=== PATIENT | male | born 1955 | race Two or more races ===

== ENCOUNTER 2018-09-22 10:26 | Emergency (ER) | payer OTHER ==
[2018-09-22 11:03] VITALS: BP 135/73; PULSE 78; TEMP 98; BMI 30.8
[2018-09-22] MEDS ORDERED: ONDANSETRON 4 MG/2 ML VIAL IVPUSH ONE (11:54)
[2018-09-22] MEDS ORDERED: SODIUM CHLORIDE 1,000 ML IV STA (11:54)
--- NOTE | 2018-09-22 12:00 | PDOC ---
History of Present Illness - General Chief Complaint: Nausea/Vomiting Stated Complaint: FEVER/VOMITING Time Seen by Provider: 09/22/18 11:17 History Source: Patient Exam Limitations: No Limitations Past History - Travel Traveled outside of the country in the last 30 days: No Close contact w/someone who was outside of country & ill: No - Past Medical History Allergies/Adverse Reactions: Allergies Allergy/AdvReac Type Severity Reaction Status Date / Time No Known Allergies Allergy Verified 09/22/18 10:58 Home Medications: Ambulatory Orders Albuterol Sulfate Inhaler - [Ventolin Hfa Inhaler -] 1 - 2 inh PO QID PRN Mag Hydrox/Al Hydrox/Simeth [Mylanta Oral Suspension -] 30 ml PO DAILY #210 ml 09/22/18 Omeprazole 40 mg PO DAILY 09/22/18 Ondansetron [Zofran Odt -] 4 mg SL TID #10 od.tablet 09/22/18 Ranitidine [Zantac -] 150 mg PO BID #14 tablet 09/22/18 Asthma: Yes COPD: No GI Disorders: Yes (reflux) - Suicide/Smoking/Psychosocial Hx Smoking History: Never smoked Review of Systems - Review of Systems Able to Perform ROS?: Yes Comments:: 09/22/18 11:54 CONSTITUTIONAL: Present: fever Absent: chills, diaphoresis, generalized weakness, malaise, loss of appetite HEENT: Absent: rhinorrhea, nasal congestion, throat pain, throat swelling, difficulty swallowing, mouth swelling, ear pain, eye pain, visual Changes CARDIOVASCULAR: Absent: chest pain, loss of consciousness, palpitations, irregular heart rate, peripheral edema RESPIRATORY: Absent: cough, shortness of breath, dyspnea with exertion, orthopnea, wheezing, stridor, hemoptysis GASTROINTESTINAL: Present: abdominal discomfort, nausea Absent: abdominal pain, abdominal distension, nausea, vomiting, diarrhea, constipation, melena, hematochezia GENITOURINARY: Absent: dysuria, frequency, urgency, hesitancy, hematuria, flank pain, genital pain MUSCULOSKELETAL: Absent: myalgia, arthralgia, joint swelling SKIN: Absent: rash, itching, pallor HEMATOLOGIC/IMMUNOLOGIC: Absent: easy bleeding, easy bruising, lymphadenopathy, frequent infections ENDOCRINE: Absent: unexplained weight gain, unexplained weight loss, heat intolerance, cold intolerance NEUROLOGIC: Absent: headache, focal weakness or paresthesias, dizziness, unsteady gait, seizure, mental status changes, bladder or bowel incontinence PSYCHIATRIC: Absent: anxiety, depression, suicidal or homicidal ideation, hallucinations. Is the patient limited Yoruba proficient: No *Physical Exam - Vital Signs Last Vital Signs Temp Pulse Resp BP Pulse Ox 98 F 78 22 H 135/73 100 09/22/18 11:02 09/22/18 11:02 09/22/18 11:02 09/22/18 11:02 09/22/18 11:02 - Physical Exam Comments: 09/22/18 12:00 GENERAL: Well developed, well nourished. Awake and alert. No acute distress. HEENT: Normocephalic, atraumatic. PERRLA, EOMI. No conjunctival pallor. Sclera are non- icteric. Moist mucous membranes. Oropharynx is clear. NECK: Supple. Full ROM. No JVD. Carotid pulses 2+ and symmetric, without bruits. No thyromegaly. No lymphadenopathy. CARDIOVASCULAR: Regular rate and rhythm. No murmurs, rubs, or gallops. Distal pulses are 2+ and symmetric. PULMONARY: No evidence of respiratory distress. Lungs clear to auscultation bilaterally. No wheezing, rales or rhonchi. ABDOMINAL: Discomfort to the epigastric area. Soft. Non-tender. Non-distended. No rebound or guarding. No organomegaly. Normoactive bowel sounds. MUSCULOSKELETAL Normal range of motion at all joints. No bony deformities or tenderness. No CVA tenderness. EXTREMITIES: No cyanosis. No clubbing. No edema. No calf tenderness. SKIN: Warm and dry. Normal capillary refill. No rashes. No jaundice. NEUROLOGICAL: Alert, awake, appropriate. Cranial nerves 2-12 intact. No deficits to light touch and temperature in face, upper extremities and lower extremities. No motor deficits in the in face, upper extremities and lower extremities. Normoreflexic in the upper and lower extremities. Normal speech. Toes are down- going bilaterally. Gait is normal without ataxia. PSYCHIATRIC: Cooperative. Good eye contact. Appropriate mood and affect. Moderate Sedation - Procedure Monitoring Vital Signs: Procedure Monitoring Vital Signs Temperature 98 F 09/22/18 11:02 Pulse Rate 78 09/22/18 11:02 Respiratory Rate 22 H 09/22/18 11:02 Blood Pressure 135/73 09/22/18 11:02 O2 Sat by Pulse Oximetry (%) 100 09/22/18 11:02 ED Treatment Course - LABORATORY CBC & Chemistry Diagram: 09/22/18 12:00 09/22/18 12:00 Medical Decision Making - Medical Decision Making 09/22/18 15:20 The patient is a 62-year-old male with no past medical history who presents to the emergency department today for evaluation of nausea, abdominal discomfort and intermittent fevers. He states that his girlfriend was recent diagnosed with the flu. He states that he feels weak. Denies sore throat, earache, difficulty breathing, chest pain, palpitations, vomiting and diarrhea. A/P: abdominal discomfort Labs, IV fluids, Flu EKG Meds No leukocytosis, lipase normal Flu negative No discomfort to the abdomen after zofran, fluids, pepcid and mylanta EKBPM, NRS, normal intervals/axis, no acute ST-T wave changes Most likely a viral illness DC home I discussed the physical exam findings, ancillary test results and final diagnoses with the patient. I answered all of the patient's questions. The patient was satisfied with the care received and felt comfortable with the discharge plan and treatment plan. The Patient agrees to follow up with the primary care physician/specialist within 24-72 hours. Return precautions were given. *DC/Admit/Observation/Transfer Diagnosis at time of Disposition: Gastroenteritis - Discharge Dispostion Disposition: HOME Condition at time of disposition: Stable Decision to Admit order: No - Prescriptions Prescriptions: Mag Hydrox/Al Hydrox/Simeth [Mylanta Oral Suspension -] 30 ml PO DAILY #210 ml Ondansetron [Zofran Odt -] 4 mg SL TID #10 od.tablet Ranitidine [Zantac -] 150 mg PO BID #14 tablet - Referrals Referrals: Juan Vasquez MD [Staff Physician] - - Patient Instructions Printed Discharge Instructions: DI for Viral Gastroenteritis -- Adult Additional Instructions: You have fever, nausea and vomiting Your blood work was normal today, your flu test was negative Take the zofran every 8 hours for nausea Take the zantac twice a day for one week Take the mylanta daily for one week. Avoid all dairy products until 48 hours after the vomiting/diarrhea has resolved. Eat a bland diet including apple sauce, toast, bananas, and plain rice Drink plenty of fluids including pedialyte, watered down juices and water Follow up with your primary care doctor this week Return to the ED if you develop fevers, abdominal pain, worsening vomiting, or if you have any changes in your symptoms. - Post Discharge Activity Forms/Work/School Notes: Back to Work
[2018-09-22] MEDS ORDERED: ONDANSETRON 4 MG/2 ML VIAL ONE (12:13)
[2018-09-22 12:21] LABS: BASO % 0.5 % (0-2.0); EOS % 0.1 % (0-4.5); HEMOGLOBIN 16.8 GM/dL (11.7-16.9); LYMPH % 9.2 % (8-40); MCH 30.4 pg (25.7-33.7); MCHC 34.9 g/dl (32.0-35.9); MEAN PLT VOLUME 6.8 fl (7.5-11.1); MONO % 14.1 % (3.8-10.2); NEUT % 76.1 % (42.8-82.8); PLATELET COUNT 299 K/MM3 (134-434); RBC 5.52 M/mm3 (4.00-5.60); RDW 13.3 % (11.9-15.9)
[2018-09-22 12:47] LABS: ALBUMIN 4.1 g/dl (3.4-5.0); ALK PHOS 93 U/L (45-117); ANION GAP 8 MMOL/L (8-16); BILIRUBIN,TOTAL 0.4 mg/dL (0.2-1); BLOOD UREA NITROGEN 15 mg/dL (7-18); CALCIUM 9.3 mg/dL (8.5-10.1); CHLORIDE 101 mmol/L (98-107); CO2 25 mmol/L (21-32); GLUCOSE,RANDOM 113 mg/dL (74-106); POTASSIUM 4.2 mmol/L (3.5-5.1); SGOT/AST 23 U/L (15-37); SGPT/ALT 29 U/L (13-61); SODIUM 135 mmol/L (136-145); TOT PROT 7.5 g/dl (6.4-8.2)
[2018-09-22] MEDS ORDERED: FAMOTIDINE 20 MG/50 ML IVPB 20 MG/50 ML MG IVPB ONE ×2 (13:02→13:07)
[2018-09-22] MEDS ORDERED: MAG HYDROX/AL HYDROX/SIMETH 30 ML UNIT-DOSE CUP PO ONE (13:02)
[2018-09-22] MEDS ORDERED: MAG HYDROX/AL HYDROX/SIMETH 30 ML UNIT-DOSE CUP ONE (13:07)
--- NOTE | 2018-09-23 12:07 | EKG ---
Test Reason : Blood Pressure : / mmHG Vent. Rate : 070 BPM Atrial Rate : 070 BPM P-R Int : 172 ms QRS Dur : 090 ms QT Int : 398 ms P-R-T Axes : 059 061 064 degrees QTc Int : 429 ms NORMAL SINUS RHYTHM WITH SINUS ARRHYTHMIA NORMAL ECG NO PREVIOUS ECGS AVAILABLE Confirmed by JAD ROCA MD ([id number]) on 09/23/2018 12:07:10 PM Referred By: RS Confirmed By:JAD ROCA MD
== END 2018-09-22 14:16 | disposition home or self-care (01) ==
LOC: JERFT 10:26
PROC: 3E0337Z Introduction of Electrolytic and Water Balance Substance into Peripheral Vein, Percutaneous Approach (ICD-10-PCS; principal; 2018-09-22)
PROC: 3E033GC Introduction of Other Therapeutic Substance into Peripheral Vein, Percutaneous Approach (ICD-10-PCS; 2018-09-22)
PROC: 3E033GC Introduction of Other Therapeutic Substance into Peripheral Vein, Percutaneous Approach (ICD-10-PCS; 2018-09-22)
DX: K52.9 Noninfective gastroenteritis and colitis, unspecified (principal)
CPT/HCPCS: 36415; 80053; 83690; 85025; 87804; 93005; 93010; 96361; 96365; 96375; 99281-25; J7030

== ENCOUNTER 2023-03-05 10:11 | Emergency (ER) | payer OTHER ==
[2023-03-05 10:18] VITALS: TEMP 97; BMI 31.7
[2023-03-05] MEDS ORDERED: DEXTROSE 5%-NORMAL SALINE 1,000 ML IV ONE (11:15)
[2023-03-05] MEDS ORDERED: FAMOTIDINE 20 MG/50 ML IVPB 20 MG/50 ML MG IVPB ONE ×2 (11:15→11:38)
[2023-03-05] MEDS ORDERED: ACETAMINOPHEN 1000 MG/100 ML BAG IVPB ONE (11:15)
[2023-03-05] MEDS ORDERED: ONDANSETRON 4 MG/2 ML VIAL IVPUSH ONE (11:16)
[2023-03-05] MEDS ORDERED: THIAMINE HCL 200 MG/2 ML VIAL IVPB ONE (11:17)
[2023-03-05] MEDS ORDERED: MAG HYDROX/AL HYDROX/SIMETH 30 ML UNIT-DOSE CUP PO ONE (11:17)
[2023-03-05] MEDS ORDERED: MAG HYDROX/AL HYDROX/SIMETH 30 ML UNIT-DOSE CUP ONE (11:37)
[2023-03-05] MEDS ORDERED: ONDANSETRON 4 MG/2 ML VIAL ONE (11:37)
[2023-03-05] MEDS ORDERED: ACETAMINOPHEN INJECTION 100 ML IVPB ONE (11:37)
[2023-03-05] MEDS ORDERED: THIAMINE HCL 200 MG/2 ML VIAL ONE (11:37)
[2023-03-05 11:52] LABS: VENOUS BASE EXCESS 1.6 mmol/L (-2-2); VENOUS O2 SATURATION 54.2 % (70-80); VENOUS PCO2 50.2 mmHg (38-52); VENOUS PH 7.363 (7.310-7.410)
[2023-03-05 11:58] LABS: BASO % 0.6 % (0-2.0); EOS % 1.3 % (0-4.5); HEMATOCRIT 43.7 % (35.4-49); HEMOGLOBIN 14.1 GM/dL (11.7-16.9); LYMPH % 17.6 % (8-40); MCH 28.8 pg (25.7-33.7); MCHC 32.4 g/dl (32.0-35.9); MONO % 8.3 % (3.8-10.2); NEUT % 72.2 % (42.8-82.8); PLATELET COUNT 368 10^3/uL (134-434); RBC 4.91 M/mm3 (4.00-5.60); RDW 13.3 % (11.9-15.9); WHITE BLOOD COUNT 11.1 K/mm3 (4.0-10.0)
[2023-03-05 12:00] LABS: PH,URINE 6.5 (5.0-8.0); URINE APPEARANCE CLEAR; URINE BILIRUBIN NEGATIVE (NEGATIVE); URINE COLOR YELLOW; URINE GLUCOSE (UA) NEGATIVE (NEGATIVE); URINE KETONE TRACE (NEGATIVE); URINE LEUK ESTERASE NEGATIVE (NEGATIVE); URINE NITRITE NEGATIVE (NEGATIVE); URINE PROTEIN NEGATIVE (NEGATIVE)
[2023-03-05 12:17] LABS: POTASSIUM 4.5 mmol/L (3.5-5.1)
[2023-03-05 12:19] LABS: MAGNESIUM 2.2 mg/dL (1.8-2.4)
[2023-03-05 12:20] LABS: ALBUMIN 3.8 g/dl (3.4-5.0); CALCIUM 9.4 mg/dL (8.5-10.1)
[2023-03-05 12:21] LABS: ACTIVATED PTT 33.8 SECONDS (25.2-36.5); PROTHROMBIN TIME (PATIENT) 11.6 SEC (9.7-13.0)
[2023-03-05 12:23] LABS: BILIRUBIN,DIRECT 0.2 mg/dL (0.0-0.2); CREATININE 0.9 mg/dL (0.55-1.3)
[2023-03-05 12:24] LABS: TOT PROT 6.9 g/dl (6.4-8.2)
[2023-03-05 12:25] LABS: BILIRUBIN,TOTAL 0.6 mg/dL (0.2-1)
[2023-03-05 17:27] VITALS: BP 136/86; PULSE 86; RESP 20
== END 2023-03-05 17:28 | disposition home or self-care (01) ==
LOC: JER 10:11
PROC: 3E033GC Introduction of Other Therapeutic Substance into Peripheral Vein, Percutaneous Approach (ICD-10-PCS; principal; 2023-03-05)
PROC: 3E033GC Introduction of Other Therapeutic Substance into Peripheral Vein, Percutaneous Approach (ICD-10-PCS; 2023-03-05)
PROC: 3E033GC Introduction of Other Therapeutic Substance into Peripheral Vein, Percutaneous Approach (ICD-10-PCS; 2023-03-05)
PROC: 3E033GC Introduction of Other Therapeutic Substance into Peripheral Vein, Percutaneous Approach (ICD-10-PCS; 2023-03-05)
DX: R10.84 Generalized abdominal pain (principal); R74.8 Abnormal levels of other serum enzymes; R11.2 Nausea with vomiting, unspecified
CPT/HCPCS: 36415; 74177-TC; 80053; 81003; 82248; 82550; 82553; 82803; 83605; 83690; 83735; 84484; 85025; 85610; 85730; 86850; 86900; 86901; 87086; 93005; 93010; 99285-25; Q9967